=== PATIENT | female | born 1960 | race Caucasian/White ===

== ENCOUNTER → 2016-06-09 | Outpatient (CLI) | payer BC ==
--- NOTE | 2016-06-10 11:10 | MM ---
Reason for exam: screening (asymptomatic). Last mammogram was performed 7 months ago. History: Patient is postmenopausal and is nulliparous. Family history of breast cancer in maternal aunt and premenopausal breast cancer in maternal aunt at age 45. Benign excisional biopsy of the right breast, 1977. Physical Findings: A clinical breast exam by your physician is recommended on an annual basis and results should be correlated with mammographic findings. MG Screening Mammo w CAD Bilateral CC and MLO view(s) were taken. Prior study comparison: November 12, 2015, left breast MG diagnostic mammo LT w CAD. April 03, 2015, bilateral MG 3d diag mammo w/cad JENNIFER. April 03, 2015, left breast US breast limited LT. March 10, 2014, bilateral MG screening mammo w CAD. February 14, 2013, bilateral digital screening mammo w/CAD. There are scattered fibroglandular densities. There is chronic nodularity bilaterally. Scattered round and punctate calcifications are unchanged. No significant changes when compared with prior studies. ASSESSMENT: Negative, BI-RAD 1 RECOMMENDATION: Routine screening mammogram of both breasts in 1 year.
== END | disposition home or self-care (01) ==
LOC: RADMAMWWP 16:17
PROVIDERS: ATTEND Internal Medicine
DX: Z12.31 Encounter for screening mammogram for malignant neoplasm of breast (principal)

== ENCOUNTER → 2017-07-17 | Outpatient (CLI) | payer BC ==
--- NOTE | 2017-07-18 10:43 | MM ---
Reason for exam: screening (asymptomatic). Last mammogram was performed 1 year and 1 month ago. History: Patient is postmenopausal and is nulliparous. Family history of breast cancer in maternal aunt and premenopausal breast cancer in maternal aunt at age 45. Benign excisional biopsy of the right breast, 1977. Physical Findings: A clinical breast exam by your physician is recommended on an annual basis and results should be correlated with mammographic findings. MG Screening Mammo w CAD Bilateral CC and MLO view(s) were taken. Prior study comparison: June 09, 2016, bilateral MG screening mammo w CAD. November 12, 2015, left breast MG diagnostic mammo LT w CAD. There are scattered fibroglandular densities. There is chronic nodularity bilaterally with multiple circumscribed masses in a benign pattern. No significant changes when compared with prior studies. ASSESSMENT: Benign, BI-RAD 2 RECOMMENDATION: Routine screening mammogram of both breasts in 1 year.
== END | disposition home or self-care (01) ==
LOC: RADMAMWWP 16:00
PROVIDERS: ATTEND Internal Medicine
DX: Z12.31 Encounter for screening mammogram for malignant neoplasm of breast (principal)
CPT/HCPCS: 77067

== ENCOUNTER → 2017-09-09 | Outpatient (CLI) | payer BC ==
[2017-09-09 10:54] LABS: ALT 31 U/L (9-52); AST 19 U/L (14-36); Cholesterol 195 mg/dL (<200); HDL Cholesterol 46 mg/dL (40-60); LDL Cholesterol,Calculated 132 mg/dL (0-99); Triglycerides 84 mg/dL (<150)
== END | disposition home or self-care (01) ==
LOC: LABWHC1 09:33
PROVIDERS: ATTEND Nurse Practitioner Adult Health
DX: E78.5 Hyperlipidemia, unspecified (principal)
CPT/HCPCS: 36415; 80061; 84450; 84460

== ENCOUNTER → 2018-03-10 | Outpatient (CLI) | payer BC | LOC: LABWHC1 09:10 | PROVIDERS: ATTEND Nurse Practitioner Adult Health | DX: E78.5 Hyperlipidemia, unspecified (principal) | CPT/HCPCS: 36415; 80061; 84450; 84460 ==

== ENCOUNTER → 2018-08-30 | Outpatient (CLI) | payer BC ==
--- NOTE | 2018-08-31 13:40 | MM ---
Reason for exam: screening (asymptomatic). Last mammogram was performed 1 year and 1 month ago. History: Patient is postmenopausal and is nulliparous. Family history of breast cancer in maternal aunt and premenopausal breast cancer in maternal aunt at age 45. Benign excisional biopsy of the right breast, 1977. Physical Findings: A clinical breast exam by your physician is recommended on an annual basis and results should be correlated with mammographic findings. MG Screening Mammo w CAD Bilateral CC and MLO view(s) were taken. Prior study comparison: July 17, 2017, bilateral MG screening mammo w CAD. June 09, 2016, bilateral MG screening mammo w CAD. The breast tissue is heterogeneously dense. This may lower the sensitivity of mammography. There is a left lower inner quadrant mass 8.5cm from nipple. Benign appearing bilateral calcifications. No suspicious abnormality on the right. Stable right masses. ASSESSMENT: Incomplete: need additional imaging evaluation, BI-RAD 0 RECOMMENDATION: Special view mammogram of the left breast. If lesion persists on supplemental views, image directed ultrasound is recommended. [facility] will attempt to contact patient to return for supplemental views and ultrasound if indicated.
== END | disposition home or self-care (01) ==
LOC: RADMAMWWP 12:38
PROVIDERS: ATTEND Internal Medicine
DX: Z12.31 Encounter for screening mammogram for malignant neoplasm of breast (principal)
CPT/HCPCS: 77067

== ENCOUNTER → 2018-09-05 | Outpatient (CLI) | payer BC ==
--- NOTE | 2018-09-05 12:20 | MM ---
Reason for exam: additional evaluation requested from abnormal screening. Last mammogram was performed less than 1 month ago. History: Patient is postmenopausal and is nulliparous. Family history of breast cancer in maternal aunt and premenopausal breast cancer in maternal aunt at age 45. Benign excisional biopsy of the right breast, 1977. Physical Findings: Nurse did not find any significant physical abnormalities on exam. MG Work Up Mamm w CAD LT CC and MLO view(s) were taken of the left breast. Prior study comparison: August 30, 2018, bilateral MG screening mammo w CAD. July 17, 2017, bilateral MG screening mammo w CAD. The breast tissue is heterogeneously dense. This may lower the sensitivity of mammography. There is a persistent left mass measuring 5mm 9cm from nipple at 6 o'clock. These results were verbally communicated with the patient and result sheet given to the patient on 09/05/18. ASSESSMENT: Incomplete: need additional imaging evaluation, BI-RAD 0 RECOMMENDATION: Ultrasound of the left breast. (lower outer quadrant)
--- NOTE | 2018-09-05 12:24 | USB ---
Reason for exam: additional evaluation requested from abnormal screening. History: Patient is postmenopausal and is nulliparous. Family history of breast cancer in maternal aunt and premenopausal breast cancer in maternal aunt at age 45. Benign excisional biopsy of the right breast, 1977. US Breast Workup Limited LT Left limited breast ultrasound including focal area of concern, retroareolar and axilla demonstrates a 0.4 x 0.2 x 0.3cm lesion too small to characterize at 9 o'clock, a 0.3 x 0.2 x 0.3cm lesion too small to characterize at 12 o'clock, a 0.4 x 0.3 x 0.4cm mixed lesion at 12 o'clock 7cm from nipple, biopsy ensure correlation with mammogram on post biopsy imaging, a 0.5 x 0.6 x 0.5cm mixed lesion at 12 o'clock recommendation based on above biopsy results and a 0.6 x 0.3 x 0.5cm mixed lesion at 2 o'clock recommendation based on above biopsy results. These results were verbally communicated with the patient and result sheet given to the patient on 09/05/18. ASSESSMENT: Suspicious, BI-RAD 4 RECOMMENDATION: Ultrasound core biopsy of the left breast. Called Dr. Camara with mammographic findings and has scheduled an appointment for the patient for 09/20/18 at 8:[address] Rainey. Biopsy scheduled for 09/20/18 at 12:20. PRELIMINARY REPORT CALLED AND FAXED TO DR. RAINEY ON 09/05/18.
== END | disposition home or self-care (01) ==
LOC: RADMAMWWP 09:02
PROVIDERS: ATTEND Internal Medicine
DX: R92.8 Other abnormal and inconclusive findings on diagnostic imaging of breast (principal)
CPT/HCPCS: 77065

== ENCOUNTER → 2018-09-20 | Day surgery (SDC) | payer BC ==
[2018-09-20 10:16] VITALS: PULSE 77; RESP 12
[2018-09-20 12:17] VITALS: BP 137/94; TEMP 98.3
--- NOTE | 2018-09-20 13:12 | MM ---
EXAMINATION TYPE: MG diagnostic mammo LT wo CAD, US biopsy breast VAD LT DATE OF EXAM: 09/20/2018 CLINICAL HISTORY: R92.8 ABNORMAL MAMMOGRAM. Abnormal ultrasound. TECHNIQUE: Ultrasound guided core biopsy of left breast. COMPARISON: Prior mammogram and ultrasound September 05, 2018 and older studies. FINDINGS: The procedure of ultrasound guided core biopsy was explained to the patient. Benefits, alternatives, and risks were discussed. An informed consent was then obtained. The patient was placed in supine positioning for imaging and for the procedure. Preprocedure ultrasound redemonstrated few scattered small hypoechoic lesions including 12:00 lesion identified as suspicious on prior ultrasound. Because of new mammogram abnormality 6:00 position targeted ultrasound here revealed 5 x 3 mm small hypoechoic lesion. This is chosen for sampling due to new mammogram abnormality. The overlying skin was prepped and draped in usual sterile fashion. Lidocaine buffered with bicarbonate was used as anesthetic into the skin period lidocaine with epinephrine is used as anesthetic to the deeper tissue up to area of concern in the left breast. Under ultrasound guidance, a 12-gauge vacuum assisted biopsy gun device was used to obtain 4a core samples. Following this, a biopsy clip was left in lesion. Postprocedure mammogram shows the area in close proximity to the original area of concern on mammogram which is not clearly identified after sampling. The patient tolerated the procedure well without any immediate complication. The patient was kept in the radiology department for short stay after the procedure and then discharged home in stable condition. IMPRESSION: Successful, uncomplicated ultrasound guided core biopsy of area of concern in the left breast, full pathology results to follow. Low index of suspicion noted at time of procedure. Pathology Results: Benign LEFT BREAST, SIX O'CLOCK, ULTRASOUND GUIDED CORE BIOPSY: Fibrocystic changes including cysts, fibrosis and columnar cell change. Recommendation Follow up mammogram of the left breast in 6 months. ARID
== END ==
LOC: RADUSWWP 09:57
PROVIDERS: ATTEND Surgery
DX: N60.32 Fibrosclerosis of left breast (principal); R92.8 Other abnormal and inconclusive findings on diagnostic imaging of breast; Z88.6 Allergy status to analgesic agent
CPT/HCPCS: 88305; 77065; 19083; A4648; J2001

== ENCOUNTER → 2018-09-20 | Outpatient (CLI) | payer BC ==
[2018-09-20 08:32] VITALS: BP 128/83; PULSE 80; RESP 18; TEMP 98.5; BMI 45.4
--- NOTE | 2018-09-20 09:25 | P.GSHP ---
History of Present Illness H&P Date: 09/20/18 Chief Complaint: Abnormal left breast mammogram and ultrasound Amy is a 57[place]year[place] [id number] underwent a bilateral screening mammogram. The patient was noted to have a left lower inner quadrant mass 8.5 cm from the nipple. She had benign-appearing bilateral calcifications. Additional imaging was requested. On [id number] she underwent a left breast specimen mammogram which revealed a persistent mass in the left breast measuring 5 mm 9 cm from the nipple at the 6 o'clock position. She also underwent a left breast limited ultrasound. On the ultrasound she was noted to have a 2.4 x 0.3 x 0.4 cm lesion at 12:00 7 cm from the nipple for which a biopsy was recommended. The post biopsy image was then recommended to assure that this was the area of concern seen on the mammogram. 2 additional small lesions were identified in 0.5 x 0.6 cm mixed lesion at 12:00 and 8.6 x 0.3 cm lesion at 2:00 and further recommendation for biopsy of these was based on the results of the first biopsy. The patient does not feel anything in her breast. No nipple discharge. No pain in her breast. The patient gets mammograms on a regular basis, her past mammogram prior to this was a year ago. Family History: maternal aunt: bilateral mastectomy maternal aunt: bilateral mastectomy maternal aunt: one mastectomy (3 maternal aunts with breast cancer) mother: from a MVA at 53, had multiple needle aspirations of her breast paternal grandfather; stomach cancer Hormonal history: Menarche: 11 Pregnancies: none, had irregular periods and never menopause: 48, ablation done at 48 BCP: to regulate period to try to get , less than one year hormones: to try to get 1 year Past surgical history: 1. Right breast biopsy at 17 or 18 years of age 2. D&C 3. Cardiac cath 4. right knee surgery Past Medical History: 1. Coronary artery spasm 2. Asthma 3. HTN 4.borderline high cholesterol Social History: smoke: none alcohol: occasional drugs: none - Constitutional Constitutional: Denies chills, Denies fever - EENT Comment: pain in her right medial periorbital area follows with ophthalmology, wears glasses Eyes: right pain, denies blurred vision Ears: bilateral: decreased hearing (low sounds difficult to hear), deny: tinnitus Ears, nose, mouth and throat: Denies headache, Denies sore throat - Breasts Breasts: bilateral: as per HPI - Cardiovascular Comment: coronary artery spasm, on metoprolal, brought on by stress, smoke, cold - Respiratory Comment: asthma - Gastrointestinal Gastrointestinal: Denies abdominal pain, Denies diarrhea, Denies nausea, Denies vomiting - Genitourinary (Female) Genitourinary: Denies dysuria, Denies hematuria - Menstruation Menstruation: Reports postmenopausal - Musculoskeletal Comment: arthritis - Integumentary Integumentary: Denies pruritus, Denies rash - Neurological Neurological: Reports numbness, Denies weakness - Psychiatric Psychiatric: Denies anxiety, Denies depression - Endocrine Endocrine: Denies fatigue, Denies weight change - Hematologic/Lymphatic Comment: celebrix off now for biopsy - Allergic/Immunologic Allergic/Immunologic: Reports seasonal allergies Past Medical History Past Medical History: Asthma, Hyperlipidemia, Hypertension, Osteoarthritis (OA) Additional Past Medical History / Comment(s): osteoarthritis bilateral knees and hands. History of Any Multi-Drug Resistant Organisms: None Reported Past Surgical History: Orthopedic Surgery, Uterine Ablation Additional Past Surgical History / Comment(s): Right breast cysts/tumors removed at age 17, Multiple D&C's, cardiac ablation in [address] Rowan, Right knee arthroscopy/meniscus repair (Dr. Kevin Vaca) Past Anesthesia/Blood Transfusion Reactions: No Reported Reaction Additional Past Anesthesia/Blood Transfusion Reaction / Comment(s): Patient states her father had difficulty coming out of anesthesia when he was in his age 60-70 but she has never had any issues personally Smoking Status: Never smoker Past Alcohol Use History: Rare Past Drug Use History: None Reported - Past Family History Mother Family Medical History: Cancer Additional Family Medical History / Comment(s): Patient states that 2 of her mother's sisters had double mastectomies, the 3rd aunt had a unilateral mas tectomy Medications and Allergies Home Medications Medication Instructions Recorded Confirmed Type Albuterol Inhaler [Ventolin Hfa 1 - 2 puff INHALATION Q2-3H PRN 07/23/14 09/20/18 History Inhaler] Aspirin 81 mg PO DAILY 07/23/14 09/20/18 History Lisinopril-Hctz 10-12.5 mg 10 mg PO QAM 07/23/14 09/20/18 History [Zestoretic 10-12.5] Metoprolol Tartrate [Lopressor] 12.5 mg PO BID 07/23/14 09/20/18 History Montelukast [Singulair] 10 mg PO HS 07/23/14 09/20/18 History Ascorbic Acid [Vitamin C] 500 mg PO DAILY 09/11/18 09/20/18 History Celecoxib [CeleBREX] 200 mg PO BID 09/11/18 09/20/18 History Allergies Allergy/AdvReac Type Severity Reaction Status Date / Time ibuprofen AdvReac Anaphylaxis Verified 09/20/18 08:34 naproxen [From Naprosyn] AdvReac Anaphylaxis Verified 09/20/18 08:34 Surgical - Exam Vital Signs Temp Pulse Resp BP Pulse Ox 98.5 F 80 18 128/83 95 09/20/18 08:26 09/20/18 08:26 09/20/18 08:26 09/20/18 08:26 09/20/18 08:26 BMI 45.4 - General obese - Eyes normal ocular movement - ENT no hearing loss, no congestion - Neck no masses, trachea midline - Respiratory normal expansion, normal respiratory effort, clear to auscultation - Cardiovascular Rhythm: regular Heart Sounds: normal: S1, S2 - Abdomen Abdomen: soft, non tender, no guarding, no rigid, no rebound - Integumentary normal turgor - Neurologic no disoriented, no combative - Musculoskeletal right knee difficulty with getting on exam table - Psychiatric oriented to time, oriented to person, oriented to place, speech is normal, memory intact Breast examination: With this: Multi-positional exam no dominant masses or nodules of concern fibrocystic changes Right axilla: No adenopathy of concern Left breast: Multiple positional exam no dominant masses or nodules of concern, fibrocystic changes this on the lateral aspect of the left breast which is somewhat irregular with 2 punctate areas of increased pigmentation within it Left axilla: No adenopathy of concern On back at bra line There is a nevus with a dark center Results Mammogram and ultrasound results reviewed Assessment and Plan Assessment: Impression: 1. Abnormal mammogram left breast 2. Abnormal ultrasound left breast 3. Family history of breast cancer 4. Fibrocystic breast changes 5. Coronary artery spasm 6. Hypertension 7. Borderline high cholesterol 8. Asthma The mammogram and ultrasound reports of been reviewed. One lesion on ultrasound is felt to correspond to the lesion seen on mammogram and it is recommended that a core biopsy of this area be performed. Following the core biopsy radiograph will be performed to assure that the area of concern was actually biopsied. If the area has not been adequately sampled by ultrasound core biopsy would recommend stereotactic core biopsy of this area. If this area has been adequately sampled and is in any way suspicious for atypical and several other cystic areas in the breast would be targeted for ultrasound core biopsy. If this is benign we will most likely follow the other areas conservatively. Plan: 1. Ultrasound core biopsy left breast 2. Medical management of medical conditions 3. Follow-up in 1 week for pathology results of ultrasound core biopsy 4. Mammogram immediately after ultrasound core biopsy to confirm that the area of concern has been adequately sampled CC:DR. Camara
== END ==
LOC: WWCWWP 08:18
PROVIDERS: ATTEND Surgery
DX: Z53.9 Procedure and treatment not carried out, unspecified reason (principal)

== ENCOUNTER → 2018-09-27 | Outpatient (CLI) | payer BC ==
[2018-09-27 16:27] VITALS: BP 138/82; PULSE 90; RESP 20; TEMP 98.5; BMI 47.0
--- NOTE | 2018-09-27 16:38 | P.PN ---
Subjective Progress Note Date: 09/27/18 Principal diagnosis: Fibrocystic breast changes Amy is a 57-year-old white female status post left breast ultrasound-guided core biopsy on . Pathology revealed benign fibrocystic changes including cysts, fibrosis and columnar cell change. Mammogram following the procedure revealed that the area biopsied and ultrasound was consistent with an area seen on mammography. The patient has no complaints following the procedure. Objective - Vital Signs Vital signs: Vital Signs Temp 98.5 F 09/27/18 16:24 Pulse 90 09/27/18 16:24 Resp 20 09/27/18 16:24 BP 138/82 09/27/18 16:24 Pulse Ox 97 09/27/18 16:24 Intake & Output 09/26/18 09/27/18 09/27/18 18:59 06:59 18:59 Weight 136.078 kg - Constitutional General appearance: Present: obese - EENT Eyes: Present: EOMI ENT: Present: hearing grossly normal - Neck Neck: Present: normal ROM - Respiratory Respiratory: bilateral: CTA - Cardiovascular Rhythm: regular Heart sounds: normal: S1, S2 - Gastrointestinal General gastrointestinal: Present: soft - Musculoskeletal Musculoskeletal: Present: gait normal - Psychiatric Psychiatric: Present: A&O x's 3, appropriate affect, intact judgment & insight - Additional findings Additional findings: Left breast biopsy; clean and dry No evidence of infection Assessment and Plan Assessment: Impression: 1. Left breast ultrasound core biopsy benign 2. Ultrasound core biopsy site appears to correspond a mammographic site of concern Plan: 1. Review pathology with radiology if they concur that this is the correct area repeat left breast mammogram and exam in 6 months time CC: Dr. Camara
== END | disposition home or self-care (01) ==
LOC: WWCWWP 16:12
PROVIDERS: ATTEND Surgery
DX: Z53.9 Procedure and treatment not carried out, unspecified reason (principal)

== ENCOUNTER → 2019-03-25 | Outpatient (CLI) | payer BC ==
--- NOTE | 2019-03-25 08:34 | MM ---
Reason for exam: follow-up at short interval from prior study. Last mammogram was performed 6 months ago. History: Patient is postmenopausal and is nulliparous. Family history of breast cancer in maternal aunt and premenopausal breast cancer in maternal aunt at age 45. Benign US biopsy breast VAD LT of the left breast, September 20, 2018. Benign excisional biopsy of the right breast, 1977. Physical Findings: Nurse did not find any significant physical abnormalities on exam. MG Diagnostic Mammo LT w CAD CC, MLO, and XCCL view(s) were taken of the left breast. Prior study comparison: September 20, 2018, left breast MG diagnostic mammo LT wo CAD. September 05, 2018, left breast MG work up mamm w CAD LT. August 30, 2018, bilateral MG screening mammo w CAD. July 17, 2017, bilateral MG screening mammo w CAD. June 09, 2016, bilateral MG screening mammo w CAD. The breast tissue is heterogeneously dense. This may lower the sensitivity of mammography. Benign appearing calcifications in the left breast. No suspicious abnormality. Left lower inner quadrant middle depth biopsy marker noted. These results were verbally communicated with the patient and result sheet given to the patient on 03/25/19. ASSESSMENT: Benign, BI-RAD 2 RECOMMENDATION: Return to routine screening mammogram schedule for both breasts. Back on schedule for August 2019.
== END | disposition home or self-care (01) ==
LOC: RADMAMWWP 07:01
PROVIDERS: ATTEND Surgery
DX: R92.8 Other abnormal and inconclusive findings on diagnostic imaging of breast (principal)
CPT/HCPCS: 77065

== ENCOUNTER → 2019-03-28 | Outpatient (CLI) | payer BC ==
[2019-03-28 16:37] VITALS: BP 136/84; PULSE 72; RESP 18; TEMP 97.9; BMI 45.4
--- NOTE | 2019-03-28 17:06 | P.PN ---
Subjective Progress Note Date: 03/28/19 Amy is a 57[place] [id number] [place] a bilateral screening mammogram. The patient was noted to have a left lower inner quadrant mass 8.5 cm from the nipple. She had benign-appearing bilateral calcifications. Additional imaging was requested. On she underwent a left breast mammogram which revealed a persistent mass in the left breast measuring 5 mm 9 cm from the nipple at the 6 o'clock position. She also underwent a left breast limited ultrasound. On the ultrasound she was noted to have a 2.4 x 0.3 x 0.4 cm lesion at 12:00 7 cm from the nipple for which a biopsy was recommended. The post biopsy image was then recommended to assure that this was the area of con cern seen on the mammogram. 2 additional small lesions were identified in 0.5 x 0.6 cm mixed lesion at 12:00 and 8.6 x 0.3 cm lesion at 2:00 and further recommendation for biopsy of these was based on the results of the first biopsy. The patient does not feel anything in her breast. No nipple discharge. No pain in her breast. The patient gets mammograms on a regular basis. Underwent an ultrasound-guided core biopsy of the left breast and [id number]. This revealed fibrocystic changes. She subsequently had a repeat mammogram of the left side on . This was felt to be benign BIRADS 2 and routine screening of both breasts in August 2019 is recommended. She is not having any complaints of any lumps masses or nodules in her breast. Family History: maternal aunt: bilateral mastectomy maternal aunt: bilateral mastectomy maternal aunt: one mastectomy (3 maternal aunts with breast cancer) mother: from a MVA at 53, had multiple needle aspirations of her breast paternal grandfather; stomach cancer Hormonal history: Menarche: 11 Pregnancies: none, had irregular periods and never menopause: 48, ablation done at 48 BCP: to regulate period to try to get , less than one year hormones: to try to get 1 year Past surgical history: 1. Right breast biopsy at 17 or 18 years of age 2. D&C 3. Cardiac cath 4. right knee surgery Past Medical History: 1. Coronary artery spasm 2. Asthma 3. HTN 4.borderline high cholesterol Social History: smoke: none alcohol: occasional drugs: none - Constitutional Constitutional: Denies chills, Denies fever - EENT Comment: resolved pain in her right medial periorbital area follows with ophthalmology, wears glasses Eyes: right pain, denies blurred vision Ears: bilateral: decreased hearing (low sounds difficult to hear), deny: tinnitus Ears, nose, mouth and throat: Denies headache, Denies sore throat - Breasts Breasts: bilateral: as per HPI - Cardiovascular Comment: coronary artery spasm, on metoprolal, brought on by stress, smoke, cold - Respiratory Comment: asthma - Gastrointestinal Gastrointestinal: Denies abdominal pain, Denies diarrhea, Denies nausea, Denies vomiting - Genitourinary (Female) Genitourinary: Denies dysuria, Denies hematuria - Menstruation Menstruation: Reports postmenopausal - Musculoskeletal Comment: arthritis - Integumentary Integumentary: Denies pruritus, Denies rash - Neurological Neurological: Reports numbness, Denies weakness - Psychiatric Psychiatric: Denies anxiety, Denies depression - Endocrine Endocrine: Denies fatigue, Denies weight change - Hematologic/Lymphatic Comment: celebrix off now for biopsy - Allergic/Immunologic Allergic/Immunologic: Reports seasonal allergies Past Medical History Past Medical History: Asthma, Hyperlipidemia, Hypertension, Osteoarthritis (OA) Additional Past Medical History / Comment(s): osteoarthritis bilateral knees and hands. History of Any Multi-Drug Resistant Organisms: None Reported Past Surgical History: Orthopedic Surgery, Uterine Ablation Additional Past Surgical History / Comment(s): Right breast cysts/tumors removed at age 17, Multiple D&C's, cardiac ablation in [address] Rowan, Right knee arthroscopy/meniscus repair (Dr. Kevin Vaca) Past Anesthesia/Blood Transfusion Reactions: No Reported Reaction Additional Past Anesthesia/Blood Transfusion Reaction / Comment(s): Patient states her father had difficulty coming out of anesthesia when he was in his age 60-70 but she has never had any issues personally Smoking Status: Never smoker Past Alcohol Use History: Rare Past Drug Use History: None Reported - Past Family History Mother Family Medical History: Cancer Additional Family Medical History / Comment(s): Patient states that 2 of her mother's sisters had double mastectomies, the 3rd aunt had a unilateral mastectomy Objective - Vital Signs Vital signs: Vital Signs Temp 97.9 F 03/28/19 16:35 Pulse 72 03/28/19 16:35 Resp 18 03/28/19 16:35 BP 136/84 03/28/19 16:35 Pulse Ox 97 03/28/19 16:35 Intake & Output 03/27/19 03/28/19 03/28/19 18:59 06:59 18:59 Weight 131.542 kg - Exam BMI 45.4 - Constitutional General appearance: Present: obese - EENT Eyes: Present: EOMI ENT: Present: hard of hearing - Neck Neck: Present: normal ROM - Respiratory Respiratory: bilateral: CTA - Cardiovascular Rhythm: regular Heart sounds: normal: S1, S2 - Gastrointestinal Gastrointestinal Comment(s): no guarding or rebound normal bowel sounds General gastrointestinal: Present: soft - Integumentary Integumentary: Present: normal turgor - Musculoskeletal Musculoskeletal: Present: gait normal - Psychiatric Psychiatric: Present: A&O x's 3, appropriate affect, intact judgment & insight - Additional findings Additional findings: breast exam: BRA 42D Breasts: Multiple positional exam no dominant masses or nodules of concern Right axilla: No adenopathy of concern Left breast: Multi-positional exam no dominant masses or nodules of concern Left axilla: No adenopathy of concern Assessment and Plan Assessment: Impression: 1. Status post ultrasound-guided core biopsy of the left breast which was benign 2. Recent mammogram of the left breast benign 3. Family history of breast cancer 4. Fibrocystic breast changes 5. Coronary artery spasm 6. Hypertension 7. Borderline high cholesterol 8. Asthma 9. obesity making exam more difficult Plan: 1. Repeat left breast mammogram and ultrasound in 6 months with physician exam at that time, repeat right breast mammogram and schedule 2. Medical management of medical conditions 3. Consider genetic counseling secondary to strong family history of breast cancer We have discussed the pathology results. We have discussed the findings on the mammogram. We discussed the option of genetic counseling however the patient at this time is not interested. We will continue to follow the patient closely secondary to her strong family history of breast cancer and changes which had been noted radiographically. Cc:Dr. Camara
== END | disposition home or self-care (01) ==
LOC: WWCWWP 15:38
PROVIDERS: ATTEND Surgery
DX: Z53.9 Procedure and treatment not carried out, unspecified reason (principal)

== ENCOUNTER → 2020-11-09 | Outpatient (CLI) | payer BC ==
[2020-11-09 15:20] LABS: Chol/HDL Ratio 3.44; LDL Cholesterol,Calculated 68.2 mg/dL (0.0-131.0); VLDL Calculation 36.8 mg/dL (5.00-40.00)
== END | disposition home or self-care (01) ==
LOC: LABWHC1 09:15
PROVIDERS: ATTEND Internal Medicine Interventional Cardiology
DX: E78.2 Mixed hyperlipidemia (principal)
CPT/HCPCS: 36415; 80061; 84450; 84460

== ENCOUNTER → 2021-09-27 | Outpatient (CLI) | payer BC ==
--- NOTE | 2021-09-28 10:44 | CT ---
EXAMINATION TYPE: US abdomen limited DATE OF EXAM: 09/28/2021 COMPARISON: None HISTORY: Primary osteoarthritis left shoulder CT DLP: 673.3 mGycm Automated exposure control for dose reduction was used. Contrast: None Technique: Axial images 2 mm thick sections. Reconstructed images in the coronal and sagittal plane. Three-D reconstructed images performed by the technologist on a separate computer are reviewed. FINDINGS: No acute fractures are evident. There is mild hypertrophy of the acromioclavicular junction. Inferior spurring is not identified. There is complete loss of the glenohumeral junction. Vacuum joint space is present. There is advanced degenerative change and remodeling of the humeral head and glenoid. Osseous spurring is present. No free fragments are identified. Three-D reconstructed images demonstrate advanced degenerative change. Acromiohumeral space appears p reserved. Soft tissues are normal. Small portion of the lung field within the field of view appears unremarkabl e. IMPRESSION: 1. ADVANCED DEGENERATIVE JOINT CHANGES LEFT GLENOHUMERAL JUNCTION.
== END | disposition home or self-care (01) ==
LOC: RADCTMAIN 18:27
PROVIDERS: ATTEND Orthopaedic Surgery Sports Medicine
DX: M19.012 Primary osteoarthritis, left shoulder (principal)

== ENCOUNTER → 2021-10-02 | Outpatient (CLI) | payer BC ==
--- NOTE | 2021-10-02 14:11 | XR ---
EXAMINATION TYPE: XR chest 2V DATE OF EXAM: 10/02/2021 COMPARISON: Chest x-ray July 12, 2014. HISTORY: Cough. TECHNIQUE: Frontal and lateral views of the chest are obtained. FINDINGS: There is no suspicious new focal air space opacity, pleural effusion, or pneumothorax seen . The cardiac silhouette size remains within normal limits. The osseous structures are intact. IMPRESSION: No no suspicious acute pulmonary process.
== END | disposition home or self-care (01) ==
LOC: RADXRMAIN 11:49
PROVIDERS: ATTEND Internal Medicine
DX: R05.9 Cough, unspecified (principal)
CPT/HCPCS: 71046

== ENCOUNTER → 2021-10-14 | Outpatient (CLI) | payer BC ==
--- NOTE | 2021-10-14 07:43 | US ---
EXAMINATION TYPE: US venous doppler duplex LE LT DATE OF EXAM: 10/14/2021 7:24 AM COMPARISON: NONE CLINICAL HISTORY: M79.662 PAIN IN LEFT LOWER LEG. SIDE PERFORMED: TECHNIQUE: The lower extremity deep venous system is examined utilizing real time linear array sonog pearl with graded compression, doppler sonography and color-flow sonography. VESSELS IMAGED: Common Femoral Vein Deep Femoral Vein Greater Saphenous Vein * Femoral Vein Popliteal Vein Small Saphenous Vein * Proximal Calf Veins (* superficial vessels) Morbidly obese patient. Unable to see distal femoral vein for compression view. Left Leg: Negative for DVT Grayscale, color doppler, spectral doppler imaging performed of the deep veins of the left lower extr emity. IMPRESSION: Suboptimal study due to body habitus. No ultrasound evidence for acute DVT in the left l ower extremity.
== END | disposition home or self-care (01) ==
LOC: RADUSWWP 07:01
PROVIDERS: ATTEND Internal Medicine
DX: M79.662 Pain in left lower leg (principal)

== ENCOUNTER → 2021-10-15 | Outpatient (CLI) | payer BC ==
--- NOTE | 2021-10-15 14:41 | US ---
EXAMINATION TYPE: US kidneys/renal and bladder DATE OF EXAM: 10/15/2021 COMPARISON: NONE CLINICAL HISTORY: R31.9 HEMATURIA, UNSPECIFIED. Microscopic hematuria. No pain. EXAM MEASUREMENTS: Right Kidney: 9.9 x 5.7 x 6.3 cm Left Kidney: 9.3 x 4.6 x 5.2 cm Right Kidney: Cystic lesion upper medial = 1.7 x 1.5 x 1.3 cm Left Kidney: cystic lesion mid renal sinus = 1.0 x 1.0 cm. Echogenic focus, nonshadowing = 0.6 x 0.6 cm Bladder: mildly distended, anechoic, limited visualization Bilateral Jets not seen IMPRESSION: 1. Bilateral renal cysts. 2. Left renal stone. Some minimal prominence within the mid left kidney without overt hydronephrosis . Peripelvic cyst could be considered.
== END | disposition home or self-care (01) ==
LOC: RADUSWWP 07:02
PROVIDERS: ATTEND Internal Medicine
DX: N28.1 Cyst of kidney, acquired (principal); N20.0 Calculus of kidney
CPT/HCPCS: 76770

== ENCOUNTER 2021-10-28 05:34 | Day surgery (SDC) | payer BC ==
[2021-10-26 13:46] VITALS: BMI 46.2
[~2021-10-28 05:34] MED LIST: ACETAMINOPHEN TAB 500 MG TAB PO PRN; GABAPENTIN 300 MG CAP PO PRN; ONDANSETRON 4 MG/2 ML VIAL IVP PRN; TRANEXAMIC ACID IN NACL,ISO-OS 1,000 MG in SALINE 1 100ML.BAG IVPB PRN; ceFAZolin 3 GM in SODIUM CHLORIDE 0.9% 100 ML IVPB PRN
[2021-10-28] MEDS ORDERED: DEXAMETHASONE SOD PHOSPHATE 4 MG/ML 1 ML VIAL IV ONE (05:48)
[2021-10-28] MEDS ORDERED: ONDANSETRON 4 MG/2 ML VIAL IVP ONE (05:48)
[2021-10-28] MEDS ORDERED: LACTATED RINGERS 1,000 ML IV SCH (05:48)
[2021-10-28] MEDS ORDERED: HYDROmorphone 0.5 MG/0.5 ML SYRINGE IVP PRN ×3 (05:48→10:13)
[2021-10-28] MEDS ORDERED: MIDAZOLAM 2 MG/2 ML VIAL IV PRN (05:48)
[2021-10-28] MEDS ORDERED: LIDOCAINE 1% (10MG/ML) FOR IV START INTRADERMA ONE (06:25)
[2021-10-28] MEDS ORDERED: fentaNYL (PF) 50 MCG/ML 2 ML AMP IV ONE (06:48)
[2021-10-28] MEDS ORDERED: ROCURONIUM 10 MG/ML (5 ML VIAL) IV ONE (07:15)
[2021-10-28] MEDS ORDERED: SUCCINYLCHOLINE CHLORIDE VIAL 200 MG/10 ML VIAL IV ONE (07:15)
[2021-10-28] MEDS ORDERED: ROPIVACAINE 5 MG/ML 30 ML VIAL ONE (07:15)
[2021-10-28] MEDS ORDERED: GLYCOPYRROLATE 0.2 MG/ML 2 ML VIAL ONE (07:15)
[2021-10-28] MEDS ORDERED: TRANEXAMIC ACID IN NACL,ISO-OS 1,000 MG/100 ML BAG ONE (07:15)
[2021-10-28] MEDS ORDERED: PROPOFOL 10 MG/ML 20 ML VIAL IV ONE (07:15)
[2021-10-28] MEDS ORDERED: HYDROmorphone (PF) 1 MG/ML ONE (07:15)
[2021-10-28] MEDS ORDERED: LIDOCAINE 2% INJ 20 MG/ML (2 ML VIAL) ONE (07:15)
[2021-10-28] MEDS ORDERED: MIDAZOLAM 2 MG/2 ML VIAL ONE (07:15)
[2021-10-28] MEDS ORDERED: fentaNYL (PF) 50 MCG/ML 2 ML AMP ONE (07:15)
[2021-10-28] MEDS ORDERED: NEOSTIGMINE 1 MG/ML 10 ML VIAL ONE (07:15)
[2021-10-28] MEDS ORDERED: ceFAZolin 3,000 MG in SODIUM CHLORIDE 0.9% IRRIGATIO 3,000 ML IRRIGATION ONE (07:59)
[2021-10-28] MEDS ORDERED: VANCOMYCIN 1,000 MG VIAL MISCELLANE ONE (09:14)
--- NOTE | 2021-10-28 10:07 | P.ANPRN ---
Procedure Note - Anesthesia - Nerve Block Performed Left Interscalene Single Time Out Performed: Yes ([id number]) Date of Procedure: 10/28/21 Procedure Start Time: 06:49 Procedure Stop Time: 06:53 Location of Patient: PreOp Indication: Acute Post-Operative Pain, Requested by Surgeon Specifically requested for management of pain by DrTigist: Kevin Vaca Sedation Type: Sedate with meaningful contact maintained Preparation: Sterile Prep Position: Supine Catheter: None Needle Types: Pajunk Needle Gauge: 21 Ultrasound used to visualize needle placement: Yes Ultrasound used to observe medication spread: Yes Injectate: 0.5% Ropivacaine (see comment for volume) (30cc) Blood Aspirated: No Pain Paresthesia on Injection Noted: No Resistance on Injection: Normal Image Stored and Saved: Yes Events: Uneventful and Well Tolerated
[2021-10-28] MEDS ORDERED: hydrOXYzine pamoate 25 MG CAP PO PRN (10:13)
[2021-10-28] MEDS ORDERED: ONDANSETRON 4 MG/2 ML VIAL IVP PRN (10:13)
[2021-10-28] MEDS ORDERED: PROCHLORPERAZINE SUPPOSITORY 25 MG SUPP RECTAL PRN (10:13)
[2021-10-28] MEDS ORDERED: HYDROmorphone 1 MG/ML 1 ML SYRINGE IVP PRN (10:13)
[2021-10-28] MEDS ORDERED: METOCLOPRAMIDE 5 MG/ML 2 ML VIAL IVP PRN (10:13)
[2021-10-28] MEDS ORDERED: diphenhydrAMINE 25 MG CAP PO PRN (10:13)
[2021-10-28] MEDS ORDERED: SENNOSIDES-DOCUSATE SODIUM 1 EACH TAB PO PRN (10:13)
[2021-10-28] MEDS ORDERED: TEMAZEPAM 15 MG CAP PO PRN (10:13)
[2021-10-28] MEDS ORDERED: HYDROcodone/APAP 10-325MG 1 EACH TAB PO PRN (10:18)
--- NOTE | 2021-10-28 10:56 | XR ---
Limited left shoulder HISTORY: Postop Single frontal view of the left shoulder Patient is status post left shoulder arthroplasty. There is anatomic alignment in this single view. A cromioclavicular joint shows arthropathy. Suspect there is an indwelling drain. Lucency in the soft t issues is consistent with postop state. Atelectatic changes are present in the left lung as visualize d. IMPRESSION: Orthopedic follow-up as described.
--- NOTE | 2021-10-28 11:59 | OP ---
OPERATIVE REPORT DATE OF PROCEDURE: 10/28/2021. SURGEON: Kevin Vaca MD. TURNER MACHINE: Theron CONNOR. PREOPERATIVE DIAGNOSIS: Left shoulder osteoarthrosis. POSTOP DIAGNOSIS: Left shoulder osteoarthrosis. OPERATION: Left total shoulder arthroplasty. ANESTHESIA: General endotracheal. ESTIMATED BLOOD LOSS: Was 250 mL. DRAINS: One deep drain. COMPLICATIONS: None apparent. DISPOSITION: Postanesthesia care unit. INDICATIONS: Amy is a very pleasant 61-year-old female with longstanding left shoulder pain. Workup including x-rays, CT scan revealed advanced osteoarthrosis of the left shoulder. At this point, it is felt that she has failed conservative management and she would like to proceed with operative intervention. The risks of procedure were discussed with her in detail. These risks include, but are not limited to risk of infection, nerve damage, bleeding, pain, instability in the shoulder, loosening of the implants and deep infection. There is also risk of deep vein thrombosis which could lead to fatal pulmonary embolism. The patient understood the risks. All of her questions were answered to her satisfaction. Appropriate informed consent was obtained. DESCRIPTION OF THE PROCEDURE: The patient was identified in preoperative holding area. Surgical site was marked by both the patient and myself. She was given 2 grams of Ancef IV prophylactic purposes. She was then transferred to the operative suite where she was placed supine on the op on the operative table. General anesthetic was then administered and dosed per the anesthesia without apparent complication. Examination under anesthesia of the left shoulder was performed. She had elevation to 100 degrees. External rotation at the side was to 30 degrees. The patient was then placed into the beach chair position well-padded in preparation for surgery. Great care was taken to ensure the cervical spine was in neutral alignment well-padded and maintained that way to operative procedure. Great care was also taken to ensure that her legs were appropriately padded as well. The patient's left upper extremity was then prepped and draped in usual sterile fashion. Standard surgical pause undertaken to ensure that we are operating correct site and that appropriate preoperative antibiotics had been given. All staff in the room were in agreement and we proceeded. The acromion, AC joint, clavicle and coracoid were marked with a surgical pen. A planned incision centered at the level of the clavicle and extending distally over the deltopectoral interval approximately 1 cm lateral to the coracoid was marked with a surgical pen. The incision was then made with a 10 blade scalpel. Dissection was carried down sharply to the deltoid fascia. The deltopectoral interval was then identified at the level of the clavicle. A small band retractor was then placed onto the proximal deltoid. I then released the deltoid fascia on the lateral aspect of the cephalic vein. The vein was then was preserved and left in its bed medially. The cephalic vein was protected throughout the entire case. I then identified the clavipectoral fascia. This was incised proximally to the level of the coracoacromial ligament. The coracoacromial ligament was left intact. I then used my finger to spread the interval between the conjoined tendon and the subscapularis. I felt for the axillary nerve which was readily palpable. I then cleared the subacromial and subdeltoid spaces of bursal and scar tissue. I then utilized a brown retractor to hold the deltoid and expose the humeral head. I then proceeded to release the subscapularis in the anterior inferior shoulder capsule. The rotator cuff was inspected. It was found to be intact. The rotator interval was then identified. The course of the biceps tendon was also identified. I then released the rotator interval. This was released at the base of the coracoid and then out laterally. The subscapularis and the capsule were then released intratendinously. The subscapularis and capsule release extended distally in a lazy-S fashion approximately 1 cm medial to the biceps tendon. I then continued to release the capsule along the inferior neck in a vertical fashion to approximately the 6 o'clock position. Great care was taken to ensure that the capsule was always visualized as it was released as to avoid injuring the axillary nerve. I then brought a Mckeon marble installation helper with the arm externally rotated and abducted. I continued to release the capsule inferomedially to the 4 o'clock position. The inferior osteophytes were then removed as well. This was done with a rongeur. I then proceeded with preparation of the humerus. I removed most of the goat's hall osteophytes. I then removed the subchondral plate from the superior aspect of the humeral head utilizing a large rongeur. I then utilized a starting reamer to gain access to the humeral canal. This was 1 cm medial to the rotator cuff insertion and 1 cm posterior to the bicipital groove. I then prepared the humeral canal with hand reaming. I started with a 6 mm reamer, and incrementally increased until firm resistance was encountered at 10 mm. The reamer handle was then left in place. Then utilized a humeral resection guide. This was set at 30 degrees of retrotorsion. The cutting block was then set 1-2 mm above the insertion of the rotator cuff. I then proceeded to osteotomize the humeral head with an oscillating saw. I removed the resection guide and then completed the osteotomy. I then proceeded with trial stem placement. I incrementally broached the canal up to a 10 mm broach. The 10 mm trial stem was then left in place. I then proceeded with trial reduction. I started with a 38 x 19 x 39 head. This seemed to fit very nicely. The head fit os with the glenoid. The rotator cuff was not tented. The internal rotation was 90 degrees and elevation was 150 degrees. Translation was 1/2 of the head in neutral rotation and 1/4 of the head inferiorly in 15-20 degrees of abduction. I then removed the trial head. The stem was then left in place. I then proceeded with exposure of the glenoid. At this point, I did release the biceps tendon. This was tenotomized at the level of superior labrum. A bone hook was then used to pull the humerus out laterally. I then inspected the joint for any loose bodies. The condition of the rotator cuff was also inspected again. It was in excellent condition. Of note, she had a very large posterior glenoid osteophyte. The curved ostia at this point with the bone hook utilizing to pull the humerus out laterally. I was able to remove the large posterior glenoid osteophyte utilizing both a curved osteotome and hemostats. After it was removed, the Battman retractor was then placed on the posterior glenoid rim. The arm was then placed in approximately 80 degrees of abduction and in slight flexion on a Mckeon stand. I then continued to proceeded to remove the hypertrophic labrum to definitively identify the actual glenoid. I then selected the size of the glenoid. A size 3 glenoid seemed to fit very nicely. I then utilized a starting drill to make the centering hole. I then proceeded to ream the glenoid fossa. This was done with a size 3 reamer. Reaming was then taken down to paprika signs. A nice bleeding surface. as minimal Reaming as possible was done as to preserve as much subchondral bone as possible. I then proceeded to place the glenoid drill holes. Peripheral drill holes were then placed in a center hole was also drilled as well. I then placed a trial size 3 glenoid and fit very nicely on the glenoid. I then proceeded with cementing. I then [place] the wound and the bone. The drill holes were then packed with Ray-Tigre sponges. One pack of antibiotic bone cement was prepared on the back table by the surgical nurse. The peripheral drill holes were then packed with cement utilizing a 20 mL syringe. These holes were then packed very tightly. A small amount of cement was then placed on the posterior aspect of the real glenoid component. I then impacted the real glenoid component into place. It was a Biomet size 3 pegged glenoid component with a Regenerex central PEG. Excess cement was removed utilizing a Harman elevator. Pressure was then held onto the glenoid component until the cement had hardened. I then removed the Battman retractor. I then proceeded with the humeral component trial reduction with the real glenoid in place. A 38 x 19 x 39 head was then placed back onto the stem. Again was taken through trial reduction. The head set opposite the glenoid. The rotator cuff was not tented. Elevation was to 150 degrees. Internal rotation was to 90 degrees and translation was 1/2 of the head in neutral rotation and 1/4 of the head in 15-20 degrees of abduction. I then had the rental sales representative open size 38 x 19 x 39 real head and a size 10 Biomet mini stem. The stem was then impacted into the canal and 30 degrees of retrotorsion. The real head was then impacted on the dried Arias taper of the stem. The shoulder was then reduced. I then proceeded with closure. The wound was again thoroughly irrigated with sterile saline solution with antibiotic added. The rotator interval was closed tightly with 0 Vicryl interrupted suture. The subscapularis and the anterior inferior capsule were then repaired with #2 FiberWire interrupted suture. I then felt for the axillary nerve which was readily palpable and uninjured throughout the case. Again the wound was thoroughly irrigated. deep drain was then placed and brought out superiorly away from the incision. Approximately 500 mg of vancomycin powder was then placed deep. The deltopectoral interval was then closed with 0 Vicryl interrupted suture. Again the subcutaneous tissue was then thoroughly irrigated. The remaining 500 mg of vancomycin powder was then placed subcutaneously. The subcutaneous tissue was closed with 2-0 Vicryl interrupted suture and the skin was closed with a running 3- 0 Quill suture. Dermabond was applied to the incision. Sterile dressing was applied. The patient's left upper extremity was placed into a shoulder immobilizer. All sponge and needle counts were deemed correct prior to closure. The patient tolerated the procedure without apparent complication. She was transferred to recovery room in stable condition. MMODL / IJN: [id number] /
[2021-10-28] MEDS: LACTATED RINGERS 1,000 ML IV SCH (14:52)
[2021-10-28] MEDS ORDERED: ALBUTEROL NEBULIZED 2.5 MG/3 ML INHALATION PRN (15:13)
[2021-10-28] MEDS ORDERED: SYMBICORT 80-4.5 MCG INHALER INHALATION PRN (15:13)
[2021-10-28] MEDS: ceFAZolin 3 GM in SODIUM CHLORIDE 0.9% 100 ML IVPB SCH ×2 (15:46→22:59)
[2021-10-28] MEDS: HYDROcodone/APAP 10-325MG 1 EACH TAB PO PRN ×2 (15:53→21:41)
--- NOTE | 2021-10-28 18:20 | P.CONS ---
History of Present Illness - Reason for Consult Consult date: 10/28/21 medical management - Chief Complaint status post left shoulder arthroplasty - History of Present Illness patient is a 61-year-old female with a known history of asthma, hypertension, hyperlipidemia, osteoarthritis, history ofcardiac ablation in 2016 was admitted to the hospital for elective left shoulder arthroplasty.patient tolerated the procedure very well. Currently patient is on left shoulder sling. Denies any complaints of chest pain or shortness of breath. No nausea vomiting abdominal pain or diarrhea. Denies any dysuria or hematuria. No leg swelling. Blood pressure is controlled. Review of Systems Constitutional: Patient denies any fever or chills . No generalized weakness or weight loss. Abdomen: Patient denied nausea vomiting and diarrhea and abdominal pain. Cardiovascular: Patient denies any chest pain or short of breath no palpitations. Respiratory: patient denied any cough is from production. No shortness of breath Neurologic: Patient denied any numbness or tingling headache. Musculoskeletal: Patient denies any complaints of joint swelling or deformity. Skin: Negative Psychiatric: Negative Endocrine: No heat or cold intolerance. No recent weight gain. Genitourinary: No dysuria or hematuria. All other 14 point ROS negative except the above Past Medical History Past Medical History: Asthma, Hyperlipidemia, Hypertension, Osteoarthritis (OA) Additional Past Medical History / Comment(s): osteoarthritis bilateral knees and hands. KIDNEY STONE, MACULAR DEGENERATION , History of Any Multi-Drug Resistant Organisms: None Reported Past Surgical History: Orthopedic Surgery, Uterine Ablation Additional Past Surgical History / Comment(s): Right breast surgery cysts/tumors remove, Multiple D&C's, cardiac ablation in [address] Rowan, Right knee arthroscopy/meniscus repair (Dr. Kevin Vaca) Past Anesthesia/Blood Transfusion Reactions: Family History of Problems w/ Anesthesia Additional Past Anesthesia/Blood Transfusion Reaction / Comm: Patient states her father had difficulty coming out of anesthesia when he was in his age 60-70 but she has never had any issues personally - took longer for him to wake up Smoking Status: Never smoker - Past Family History Mother Family Medical History: Cancer Additional Family Medical History / Comment(s): Patient states that 2 of her mother's sisters had double mastectomies, the 3rd aunt had a unilateral mastectomy Medications and Allergies Home Medications Medication Instructions Recorded Confirmed Type Albuterol Inhaler (Mhu) [Ventolin 1 - 2 puff INHALATION Q2-3H PRN 07/23/14 10/26/21 History Hfa Inhaler (Mhu)] Aspirin 81 mg PO QAM 07/23/14 10/26/21 History Lisinopril-Hctz 10-12.5 mg 10 mg PO QAM 07/23/14 10/26/21 History [Zestoretic 10-12.5] Metoprolol Tartrate [Lopressor] 12.5 mg PO BID 07/23/14 10/26/21 History Montelukast [Singulair] 10 mg PO HS 07/23/14 10/26/21 History Celecoxib [CeleBREX] 200 mg PO BID 09/11/18 10/26/21 History Fluticasone/Vilanterol [Breo 1 inhalation PO TID PRN 03/28/19 10/26/21 History Ellipta 100-25 Mcg Inhaler] Cholecalciferol [Vitamin D3 (25 50 mcg PO DAILY 10/26/21 10/26/21 History Mcg = 1000 Iu)] Docusate [Colace] 100 mg PO BID #60 capsule 10/28/21 Rx Doxycycline Hyclate 100 mg PO BID #10 tab 10/28/21 Rx HYDROcodone/APAP 10-325MG [[place] 1 tab PO Q4HR PRN #42 tab 10/29/21 Rx 10-325] Allergies Allergy/AdvReac Type Severity Reaction Status Date / Time ibuprofen AdvReac Anaphylaxis Verified 10/26/21 13:14 naproxen [From Naprosyn] AdvReac Anaphylaxis Verified 10/26/21 13:14 Physical Exam Vitals: Vital Signs Temp Pulse Resp BP BP Pulse Ox 10/28/21 13:15 97.5 F L 79 16 130/78 95 10/28/21 12:30 63 16 135/71 96 10/28/21 12:00 60 16 135/77 95 10/28/21 11:45 60 16 144/77 95 10/28/21 11:31 68 16 137/68 96 10/28/21 11:15 68 16 143/68 93 L 10/28/21 11:00 73 16 149/71 93 L 10/28/21 10:45 64 16 151/71 99 10/28/21 10:30 73 16 150/70 98 10/28/21 10:15 74 16 146/65 98 10/28/21 10:06 96.8 F L 76 16 166/76 97 10/28/21 07:00 69 16 136/65 96 10/28/21 06:25 97.9 F 81 16 124/66 97 Intake and Output 10/28/21 10/28/21 10/28/21 06:59 14:59 22:59 Intake Total 100 601 Output Total 250 Balance 100 351 Intake: IV 100 601 Output: Estimated Blood Loss 250 Other: Weight 133.4 kg 133.4 kg PHYSICAL EXAMINATION: Patient is lying in the bed comfortably, no acute distress, awake alert and oriented.morbidly obese.. HEENT: Normocephalic. Neck is supple. Pupils reactive. Nostrils clear. Oral cavity is moist. Neck reveals no JVD, carotid bruits, or thyromegaly. CHEST EXAMINATION: Trachea is central. Symmetrical expansion. Lung schwab clear to auscultation and percussion. CARDIAC: Normal S1, S2 with no gallops. No murmurs ABDOMEN: Soft. Bowel sounds normal. No organomegaly. No abdominal bruits. Extremities: reveal no edema. No clubbing or cyanosis Neurologically awake, alert, oriented x3 with well-coordinated movements. No focal deficits noted Skin: No rash or skin lesions. Psychiatric: Coperative. Nonsuicidal Musculoskeletal: No joint swelling or deformity. left shoulder surgical site intact. Sling in place. Results CBC & Chem 7: 10/29/21 04:30 10/29/21 04:30 Assessment and Plan Assessment: Status post left shoulder arthroplasty postoperative day 0 Hypertension blood pressure is controlled. Patient is on metoprolol, hydrochlorothiazide/lisinopril at home. Asthma not in exacerbation Hyperlipidemia Osteoarthritis History of cardiac ablation 2016 Morbid obesity BMI 46.1 DVT prophylaxis Plan: Patient will be continued on current pain management, bowel regimen and incentive spirometry. Albuterol inhaler as needed and continue with the Breo Ellipta 1 puff daily. Continue with metoprolol and will hold hydrochlorothiazide/lisinopril at this time. Encourage ambulation and further recommendations based on the clinical course. Thank you for your consult.
[2021-10-28] MEDS ORDERED: MONTELUKAST 10 MG TAB PO SCH (21:00)
[2021-10-28] MEDS: METOPROLOL TARTRATE 12.5 MG TAB PO SCH (21:37)
[2021-10-29] MEDS: LACTATED RINGERS 1,000 ML IV SCH (03:07)
[2021-10-29] MEDS: HYDROcodone/APAP 10-325MG 1 EACH TAB PO PRN ×2 (05:49→11:04)
[2021-10-29] MEDS: METOPROLOL TARTRATE 12.5 MG TAB PO SCH (07:37)
[2021-10-29 07:41] VITALS: BP 134/83; PULSE 76; RESP 18; TEMP 98.4
[2021-10-29] MEDS ORDERED: ASPIRIN 81 MG PO SCH (09:00)
[2021-10-29 09:08] LABS: HCT 32.7 % (37.2-46.3); HGB 10.4 g/dL (12.0-15.0); MCHC 31.8 g/dL (32.0-37.0); MCV 91.1 fL (80.0-97.0); Mean Platelet Volume 9.9 fL (9.5-12.2); NRBC Per 100 WBC 0 /100 WBCS (0.0-0.0); Platelet Count 353 X 10*3/uL (140-440); RBC 3.59 X 10*6/uL (4.10-5.20); WBC 16.16 X 10*3/uL (4.50-10.00)
[2021-10-29 09:15] LABS: African American GFR (CKD) 78.9 (60.0-200.0); Anion Gap 9.7 mmol/L (10.00-18.00); BUN/Creat Ratio 18.89 Ratio (12.00-20.00); Calcium 8.7 mg/dL (8.7-10.3); Carbon Dioxide 27.3 mmol/L (20.0-27.5); Potassium 3.9 mmol/L (3.5-5.5)
--- NOTE | 2021-10-29 09:38 | P.DS ---
Providers Expected date of discharge: 10/29/21 Attending physician: Kevin Vaca Consults: 10/28/21 10:13 Consult Physician Routine Consulting Provider: Gordy Ford Consult Reason/Comments: post op medical management Do you want consulting provider notified?: Yes Primary care physician: Hoa Perez - Discharge Diagnosis(es) (1) Status post total shoulder arthroplasty Patient was admitted to the OR on 10/28/21 to undergo a left total shoulder arthroplasty. She had failed conservative measures as an outpatient and desired to proceed with elective surgery after given informed consent. She underwent the above procedure which she tolerated well without complication. Postoperative hospital course has remained without complication. On day of discharge she is afebrile, vital signs stable, labs within acceptable ranges, tolerating by mouth meds and diet, voiding without difficulty, positive flatus, denies abdominal pain or calf pain, pain is controlled on oral pain medication and has no new complaints. Wound is benign, neurovascular status is intact, calves are soft and nontender, abdomen soft and nontender. Review of systems is negative for numbness, tingling, fever, chills, chest pain, shortness of breath, nausea, vomiting, dizziness, headaches, slurred speech or other. Current Visit: Yes Status: Acute Priority: Medium Procedures: Left TSA Patient Condition at Discharge: Good Plan - Discharge Summary Discharge Rx Participant: Yes New Discharge Prescriptions: New Doxycycline Hyclate 100 mg PO BID #10 tab HYDROcodone/APAP 10-325MG [[place] 10-325] 1 tab PO Q4HR PRN #42 tab PRN Reason: Pain Docusate [Colace] 100 mg PO BID #60 capsule No Action Metoprolol Tartrate [Lopressor] 12.5 mg PO BID Aspirin 81 mg PO QAM Albuterol Inhaler (Mhu) [Ventolin Hfa Inhaler (Mhu)] 1 - 2 puff INHALATION Q2-3H PRN PRN Reason: Shortness Of Breath Or Wheezing Montelukast [Singulair] 10 mg PO HS Lisinopril-Hctz 10-12.5 mg [Zestoretic 10-12.5] 10 mg PO QAM Ascorbic Acid [Vitamin C] 500 mg PO QAM Celecoxib [CeleBREX] 200 mg PO BID Fluticasone/Vilanterol [Breo Ellipta 100-25 Mcg Inhaler] 1 inhalation PO TID PRN PRN Reason: ALLERGIES /SHORTNESS OF BREATH Cholecalciferol [Vitamin D3 (25 Mcg = 1000 Iu)] 50 mcg PO DAILY HYDROcodone/APAP 7.5-325MG [[place] 7.5-325] 0.5 - 1 tab PO Q6HR PRN PRN Reason: FOR SEVERE PAIN Discharge Medication List Albuterol Inhaler (Mhu) [Ventolin Hfa Inhaler (Mhu)] 1 - 2 puff INHALATION Q2-3H PRN 07/23/14 [History] Aspirin 81 mg PO QAM 07/23/14 [History] Lisinopril-Hctz 10-12.5 mg [Zestoretic 10-12.5] 10 mg PO QAM 07/23/14 [History] Metoprolol Tartrate [Lopressor] 12.5 mg PO BID 07/23/14 [History] Montelukast [Singulair] 10 mg PO HS 07/23/14 [History] Ascorbic Acid [Vitamin C] 500 mg PO QAM 09/11/18 [History] Celecoxib [CeleBREX] 200 mg PO BID 09/11/18 [History] Fluticasone/Vilanterol [Breo Ellipta 100-25 Mcg Inhaler] 1 inhalation PO TID PRN 03/28/19 [History] Cholecalciferol [Vitamin D3 (25 Mcg = 1000 Iu)] 50 mcg PO DAILY 10/26/21 [History] HYDROcodone/APAP 7.5-325MG [[place] 7.5-325] 0.5 - 1 tab PO Q6HR PRN 10/26/21 [History] Docusate [Colace] 100 mg PO BID #60 capsule 10/28/21 [Rx] Doxycycline Hyclate 100 mg PO BID #10 tab 10/28/21 [Rx] HYDROcodone/APAP 10-325MG [[place] 10-325] 1 tab PO Q4HR PRN #42 tab 10/29/21 [Rx] Follow up Appointment(s)/Referral(s): Kevin Vaca MD [STAFF PHYSICIAN] - 10 Days Activity/Diet/Wound Care/Special Instructions: Non Weight Bearing Maintain sling May shower after 3 days if no bleeding Keep wound clean and dry Take meds as directed F/U with Dr. Vaca in office Discharge Disposition: HOME SELF-CARE
--- NOTE | 2021-10-29 11:01 | P.PN ---
Subjective Progress Note Date: 10/29/21 patient is a 61-year-old female with a known history of asthma, hypertension, hyperlipidemia, osteoarthritis, history ofcardiac ablation in 2016 was admitted to the hospital for elective left shoulder arthroplasty.patient tolerated the procedure very well. Currently patient is on left shoulder sling. Denies any complaints of chest pain or shortness of breath. No nausea vomiting abdominal pain or diarrhea. Denies any dysuria or hematuria. No leg swelling. Blood pressure is controlled. 10/29/2021 Patient is currently resting in the bed. Awake alert and oriented 3. No complaints of chest pain or shortness of breath. Shoulder pain is improving. No fever no chills. No other acute overnight issues. Patient does have elevated WBC likely due to postsurgical inflammation. Denied any dysuria or hematuria. No cough or sputum production. Patient is being discharged home today. Current medications reviewed. Objective - Vital Signs Vital signs: Vital Signs Temp 98.4 F 10/29/21 07:41 Pulse 76 10/29/21 07:41 Resp 18 10/29/21 07:41 BP 134/83 10/29/21 07:41 Pulse Ox 97 10/29/21 07:41 FiO2 Intake & Output 10/28/21 10/29/21 10/29/21 18:59 06:59 18:59 Intake Total 781 Output Total 305 Balance 476 Weight 133.4 kg Intake: IV 601 Oral 180 Output: Drainage 55 Left Shoulder 55 Estimated Blood Loss 250 Other: Voiding Method Toilet Toilet # Voids 3 1 - Exam PHYSICAL EXAMINATION: Patient is lying in the bed comfortably, no acute distress, awake alert and oriented.morbidly obese.. HEENT: Normocephalic. Neck is supple. Pupils reactive. Nostrils clear. Oral cavity is moist. Neck reveals no JVD, carotid bruits, or thyromegaly. CHEST EXAMINATION: Trachea is central. Symmetrical expansion. Lung schwab clear to auscultation and percussion. CARDIAC: Normal S1, S2 with no gallops. No murmurs ABDOMEN: Soft. Bowel sounds normal. No organomegaly. No abdominal bruits. Extremities: reveal no edema. No clubbing or cyanosis Neurologically awake, alert, oriented x3 with well-coordinated movements. No focal deficits noted Skin: No rash or skin lesions. Psychiatric: Coperative. Nonsuicidal Musculoskeletal: No joint swelling or deformity. left shoulder surgical site intact. Sling in place. - Labs CBC & Chem 7: 10/29/21 04:30 10/29/21 04:30 Labs: Abnormal Lab Results - Last 24 Hours (Table) 10/29/21 10/29/21 Range/Units 04:30 04:30 WBC 16.16 H (4.50-10.00) X 10*3/uL RBC 3.59 L (4.10-5.20) X 10*6/uL Hgb 10.4 L (12.0-15.0) g/dL Hct 32.7 L (37.2-46.3) % MCHC 31.8 L (32.0-37.0) g/dL Anion Gap 9.70 L (10.00-18.00) mmol/L Glucose 120 H (70-110) mg/dL Assessment and Plan Assessment: Status post left shoulder arthroplasty postoperative day 1 Leukocytosis is likely due to postsurgical inflammation. No other signs of infection. Hypertension blood pressure is controlled. Patient is on metoprolol, hydroch lorothiazide/lisinopril at home. Asthma not in exacerbation Hyperlipidemia Osteoarthritis History of cardiac ablation 2016 Morbid obesity BMI 46.1 DVT prophylaxis Plan: Patient will be continued on current pain management, bowel regimen and incentive spirometry. Albuterol inhaler as needed and continue with the Breo Ellipta 1 puff daily. Continue with metoprolol and we will start back on hydrochl orothiazide/lisinopril at discharge. Follow with primary care physician in 3-4 days. Patient is being discharged home today. Time with Patient: Greater than 30
[2021-10-29 12:25] LABS: Basophils # (A) 0.04 X 10*3/uL (0.00-0.10); Basophils % (A) 0.2 %; Eosinophils # (A) 0.04 X 10*3/uL (0.04-0.35); Eosinophils % (A) 0.2 %; Immature Grans, Automated 0.5 %; Lymphocytes % (A) 14.9 %; Monocytes # (A) 1.79 X 10*3/uL (0.20-1.00); Monocytes % (A) 11.1 %; Neutrophils # (A) 11.81 X 10*3/uL (1.80-7.70); Neutrophils % (A) 73.1 %
[2021-10-29 12:26] LABS: RBC Morphology NORMAL
== END 2021-10-29 12:06 | disposition home or self-care (01) ==
LOC: OR 05:34 → 4SSUR 10:04 → OR 10-29 12:06
PROVIDERS: ATTEND Orthopaedic Surgery Sports Medicine
DX: M19.012 Primary osteoarthritis, left shoulder (principal); M19.042 Primary osteoarthritis, left hand; M19.041 Primary osteoarthritis, right hand; M17.0 Bilateral primary osteoarthritis of knee; I10 Essential (primary) hypertension; E78.5 Hyperlipidemia, unspecified; M19.90 Unspecified osteoarthritis, unspecified site; J45.909 Unspecified asthma, uncomplicated; Z88.6 Allergy status to analgesic agent; Z79.82 Long term (current) use of aspirin; Z79.51 Long term (current) use of inhaled steroids; Z79.899 Other long term (current) drug therapy; Z87.442 Personal history of urinary calculi; Z80.9 Family history of malignant neoplasm, unspecified; E66.01 Morbid (severe) obesity due to excess calories
CPT/HCPCS: 64415; 76942; 80048; 85025; 88300; 73020; 23472; C1776; C1713; J2250; J3370; J0330; J1100; J2710; J0690 ×2; J2405; J3010; J1170; J2795; J2704; J2001

== ENCOUNTER → 2022-03-18 | Outpatient (CLI) | payer BC ==
--- NOTE | 2022-03-21 11:06 | MM ---
Reason for Exam: Screening (asymptomatic). Last mammogram was performed 3 year(s) and 7 month(s) ago. Patient History: Menarche at age 11. Patient has no children. Postmenopausal. 1977, Benign Excisional Biopsy on the right side. 09/20/2018, Benign Core Biopsy on the left side. Maternal aunt had breast cancer. Maternal aunt had breast cancer, age 45. Risk Values: Lila 5 year model risk: 2.6%. NCI Lifetime model risk: 10.9%. Prior Study Comparison: 06/09/2016 Bilateral Screening Mammogram, [facility]. 07/17/2017 Bilateral Screening Mammogram, [facility]. 08/30/2018 Bilateral Screening Mammogram, [facility]. 09/05/2018 Left Diagnostic Mammogram, [facility]. 09/20/2018 Left Diagnostic Mammogram, [facility]. 03/25/2019 Left Diagnostic Mammogram, [facility]. Tissue Density: The breast tissue is heterogeneously dense. This may lower the sensitivity of mammography. Findings: Analyzed By CAD. There is no suspicious group of microcalcifications or new suspicious mass in either breast. Redemonstration of biopsy marker in the lower inner left breast. Benign-appearing round calcifications within both breasts. Stable chronic nodularity within the right breast. No significant change from prior exams. Overall Assessment: Benign, BI-RAD 2 Management: Screening Mammogram of both breasts in 1 year. A clinical breast exam by your physician is recommended on an annual basis and results should be correlated with mammographic findings. Electronically signed and approved by: Ronald Schuler D.O.
== END | disposition home or self-care (01) ==
LOC: RADMAMWWP 11:09
PROVIDERS: ATTEND Family Medicine
DX: Z12.31 Encounter for screening mammogram for malignant neoplasm of breast (principal); Z78.0 Asymptomatic menopausal state; Z80.3 Family history of malignant neoplasm of breast
CPT/HCPCS: 77063; 77067

== ENCOUNTER → 2023-03-03 | Outpatient (CLI) | payer BC ==
[2023-03-03 16:39] LABS: HCT 39.3 % (37.2-46.3); HGB 12.3 d/dL (12.0-15.0); MCH 28.7 pg (27.0-32.0); MCHC 31.3 d/dL (32.0-37.0); MCV 91.6 FL (80.0-97.0); Mean Platelet Volume 10.4 FL (9.5-12.2); NRBC Per 100 WBC 0 X 10*3/uL (0.00-0.01); Platelet Count 343 X 10*3/uL (140-440); RBC 4.29 X 10*6/uL (4.10-5.20); RDW 14.1 % (11.5-14.5)
[2023-03-03 16:42] LABS: Blood Urea Nitrogen 28.8 mg/dL (9.0-27.0); Carbon Dioxide 27.7 mmol/L (21.6-31.8); Chloride 103 mmol/L (96-109); Potassium 4.3 mmol/L (3.5-5.5); Sodium 143 mmol/L (135-145)
== END | disposition home or self-care (01) ==
LOC: LABPAT 09:46
PROVIDERS: ATTEND Internal Medicine Interventional Cardiology
DX: Z01.812 Encounter for preprocedural laboratory examination (principal); R07.9 Chest pain, unspecified; R06.02 Shortness of breath
CPT/HCPCS: 80051; 82565; 84520; 85027

== ENCOUNTER 2023-03-17 09:40 | Day surgery (SDC) | payer BC ==
[~2023-03-17 09:40] MED LIST changes: -ACETAMINOPHEN TAB 500 MG TAB PO PRN; +ALPRAZolam 0.25 MG TAB PO PRN; +ALPRAZolam 0.5 MG TAB PO PRN; +ASPIRIN 325 MG TAB PO STA; +ATORVASTATIN 80 MG TAB PO STA; -GABAPENTIN 300 MG CAP PO PRN; +HEPARIN SODIUM,PORCINE (1 ML) 2,500 UNIT in SODIUM CHLORIDE 0.9% 250 ML IRRIGATION PRN; +HEPARIN SODIUM,PORCINE 10,000 UNIT in SODIUM CHLORIDE 0.9% 1,000 ML IRRIGATION PRN; +NITROGLYCERIN SL TABS 0.4 MG TAB SUBLINGUAL PRN; -ONDANSETRON 4 MG/2 ML VIAL IVP PRN; +SODIUM CHLORIDE 0.9% 1,000 ML in EMPTY BAG 1 BAG IV SCH; -TRANEXAMIC ACID IN NACL,ISO-OS 1,000 MG in SALINE 1 100ML.BAG IVPB PRN; -ceFAZolin 3 GM in SODIUM CHLORIDE 0.9% 100 ML IVPB PRN
[2023-03-17] MEDS ORDERED: SODIUM CHLORIDE 0.9% 1,000 ML IV ONE (09:48)
[2023-03-17 10:40] VITALS: TEMP 98.5
[2023-03-17] MEDS ORDERED: VERAPAMIL 2.5 MG/ML 2 ML AMP ONE (11:59)
[2023-03-17] MEDS ORDERED: MIDAZOLAM 2 MG/2 ML VIAL IVP ONE (12:15)
[2023-03-17] MEDS ORDERED: LIDOCAINE 1% INJ 10MG/ML (5 ML VIAL-PF) SQ ONE (12:17)
[2023-03-17] MEDS ORDERED: VERAPAMIL SYRINGE (5 MG/10 ML) INTRAARTER ONE (12:21)
[2023-03-17] MEDS ORDERED: HEPARIN SODIUM 1,000 UN/ML (10ML VL) IV ONE (12:26)
[2023-03-17] MEDS ORDERED: IOPAMIDOL-370 100ML BTL INJ ONE (12:31)
[2023-03-17] MEDS ORDERED: RX INFO: IV CONTRAST WAS GIVEN 1 EACH MISC MISCELLANE PRN (12:42)
[2023-03-17] MEDS ORDERED: SODIUM CHLORIDE 0.9% 1,000 ML IV SCH (12:45)
--- NOTE | 2023-03-17 12:55 | P.PCN ---
Date of Procedure: 03/17/23 Operative Findings: CARDIAC CATHETERIZATION PERFORMING PHYSICIAN: Wilman Rowan MD, RPVI PROCEDURE PERFORMED: 1. Selective right and left coronary angiogram 2. Left heart catheterization 3. Ultrasound-guided access of the right radial artery INDICATION: Chest pain and abnormal myocardial perfusion imaging stress is 62-year-old female patient who has multiple risk factors for CAD COMPLICATION: None APPROACH: Right radial artery LEVEL OF SEDATION: Moderate with a sedation length of 15 minutes PROCEDURE DESCRIPTION: After obtaining an informed consent, the patient was brought to cardiac laborer [facility]bark. Local anesthesia was performed using lidocaine subcutaneously. The right radial artery was cannulated using Seldinger technique, the guidewire passed easily, following that we advanced a 5-Austrian sheath dilator assembly, the wire and dilator were removed and sheath was flushed. Following that, 2 mg of verapamil along with 5000 unit heparin were given. Selective right and left coronary angiogram using a 6-Austrian JR4 and JL 3.5 catheters. Following that we did left heart catheterization using 6-Austrian pigtail catheter. The procedure was completed there was no complication. SELECTIVE CORONARY ANGIOGRAM: The right coronary artery: Large-caliber vessel ansa dominant vessel. The RCA is tortuous but angiographically normal Left main: Is normal. Bifurcates into an LCx and LAD The left circumflex: Large-caliber vessel and nondominant vessel. The LCx is angiographically normal. It gives rises into an OM1 which works as a ramus intermedius and appears to be angiographically normal. The second obtuse marginal branch is a medium caliber vessel appears to be angiographically normal. The circumflex distally gives rises into the third OM branch which appears to be angiograph ically normal and the circumflex continue as a small-caliber vessel in the AV groove The left anterior descending artery: Large caliber vessel. The LAD is angiographically normal. Gives rises into medium-sized diagonal branch appeared to be angiographically normal HEMODYNAMICS: The LVEDP was 5 mmHg was no significant gradient across aortic valve CONCLUSION: 1. Normal coronary angiogram 2. Normal left-sided filling pressure POSTPROCEDURE MANAGEMENT: Medical treatment
[2023-03-17 17:44] VITALS: BP 143/67; PULSE 63; RESP 16
== END 2023-03-17 16:21 | disposition home or self-care (01) ==
LOC: CATHCVL 09:40
PROVIDERS: ATTEND Internal Medicine Interventional Cardiology
DX: I25.10 Atherosclerotic heart disease of native coronary artery without angina pectoris (principal); I10 Essential (primary) hypertension; I38 Endocarditis, valve unspecified; I65.23 Occlusion and stenosis of bilateral carotid arteries; E78.5 Hyperlipidemia, unspecified; Z82.49 Family history of ischemic heart disease and other diseases of the circulatory system; Z79.82 Long term (current) use of aspirin; Z79.899 Other long term (current) drug therapy
CPT/HCPCS: 93458; C1769 ×2; C1894; J2250; J2001; J1644; Q9967

== ENCOUNTER → 2023-04-04 | Outpatient (CLI) | payer BC ==
--- NOTE | 2023-04-04 12:50 | MM ---
Reason for Exam: Screening (asymptomatic). Last screening mammogram was performed 12 month(s) ago. Patient History: Menarche at age 11. Patient has no children. Postmenopausal. 1977, Benign Excisional Biopsy on the right side. 09/20/2018, Benign Core Biopsy on the left side. Maternal aunt had breast cancer. Maternal aunt had breast cancer, age 45. Risk Values: Lila 5 year model risk: 2.7%. NCI Lifetime model risk: 10.6%. Prior Study Comparison: 09/20/2018 Left Diagnostic Mammogram, [facility]. 03/25/2019 Left Diagnostic Mammogram, [facility]. 03/18/2022 Bilateral MG 3D screening mammo w/cad, [facility]. Tissue Density: There are scattered fibroglandular densities. Findings: Analyzed By CAD. Left breast biopsy clip. There is no suspicious group of microcalcifications or new suspicious mass. Benign-appearing calcifications bilaterally. Overall Assessment: Benign, BI-RAD 2 Management: Screening Mammogram of both breasts in [address] [facility] will attempt to contact patient to return for supplemental views and ultrasound if indicated. Patient should continue monthly self-breast exams. A clinical breast exam by your physician is recommended on an annual basis. This exam should not preclude additional follow-up of suspicious palpable abnormalities. Note on Lila scores and lifetime risk: 1. A Lila score greater than 3% is considered moderate risk. If this is the case, consider specialist referral to assess eligibility for a risk reducing agent. 2. If overall lifetime risk for the development of breast cancer is 20% or higher, the patient may qualify for future screening with alternating mammogram and breast MRI. Electronically signed and approved by: Jatin Brian DO
== END | disposition home or self-care (01) ==
LOC: RADMAMWWP 08:03
PROVIDERS: ATTEND Family Medicine
DX: Z12.31 Encounter for screening mammogram for malignant neoplasm of breast (principal); Z78.0 Asymptomatic menopausal state; Z80.3 Family history of malignant neoplasm of breast
CPT/HCPCS: 77063; 77067

== ENCOUNTER → 2023-06-12 | Outpatient (CLI) | payer BC ==
--- NOTE | 2023-06-12 09:54 | US ---
EXAMINATION TYPE: US arterial LE single level DATE OF EXAM: 06/12/2023 9:24 AM CLINICAL INDICATION: Female, 62 years old with history of M79.661 PAIN IN RIGHT LOWER LEG; pain in bi lat legs below knees, heaviness in legs, large habitus History of: Smoker: N Hypertension: Y Diabetic: N Hyperlipidemia: Y TIA/CVA: N Previous Vascular Surgery: N CAD: N NH: N Vascular Ulcers: N Claudication: N Gangrene: N Doppler Waveforms: Right: Multiphasic Left: Multiphasic Right Brachial Pressure: 231 Left Brachial Pressure: 226 Ankle-Brachial Indices: Right: 0.8 Left: 0.8 IMPRESSION: Abnormal brachial indices bilaterally of 0.8 suggestive of mild peripheral vascular parvez rial disease. Multiphasic waveforms bilaterally which is within normal limits. Findings may be relate d to hypertension. Consider treatment for hypertension and reassessment.
== END | disposition home or self-care (01) ==
LOC: RADUSWWP 09:00
PROVIDERS: ATTEND Family Medicine
DX: R93.89 Abnormal findings on diagnostic imaging of other specified body structures (principal); M79.661 Pain in right lower leg; M79.662 Pain in left lower leg
CPT/HCPCS: 93922

== ENCOUNTER 2023-10-28 19:04 | Emergency (ER) | payer MEDICARE, BC ==
--- NOTE | 2023-10-28 19:44 | XR ---
EXAMINATION TYPE: XR knee complete LT DATE OF EXAM: 10/28/2023 7:39 PM CLINICAL INDICATION:Female, 63 years old with history of Injury; [facility] COMPARISON: None. TECHNIQUE: XR knee complete LT; examined in Frontal, lateral and oblique projections. FINDINGS: No evidence of any acute osseous pathology, soft tissue swelling, or joint effusion is no apryl. Tricompartmental osteophyte formation involving the femoral condyles, tibial plateau and patella . Mild joint space narrowing. IMPRESSION: 1. No acute osseous pathology. 2. Moderate tricompartmental osteoarthritic changes.
--- NOTE | 2023-10-28 22:01 | ED ---
General Adult HPI - General Chief complaint: Extremity Injury, Lower Stated complaint: Fall L Knee Injury Time Seen by Provider: 10/28/23 20:54 Source: patient, RN notes reviewed Mode of arrival: wheelchair Limitations: no limitations - History of Present Illness Initial comments: 63-year-old female presents to the emergency department for evaluation of left knee injury. Patient states that she was walking down the stairs of her camper when she tripped causing her to fall. She states that she twisted her left knee. She states that she has not been able to bear weight on it since then due to pain. She denies any other injury. Denies head injury, blood thinners. - Related Data Home Medications Medication Instructions Recorded Confirmed Albuterol Inhaler [Ventolin Hfa 1 - 2 puff INHALATION Q2-3H PRN 07/23/14 03/15/23 Inhaler] Aspirin 81 mg PO QAM 07/23/14 03/17/23 Lisinopril-Hctz 10-12.5 mg 10 mg PO QAM 07/23/14 03/15/23 [Zestoretic 10-12.5] Metoprolol Tartrate [Lopressor] 12.5 mg PO BID 07/23/14 03/15/23 Montelukast [Singulair] 10 mg PO HS 07/23/14 03/17/23 Celecoxib [CeleBREX] 200 mg PO DAILY 09/11/18 03/15/23 Fluticasone/Vilanterol [Breo 1 inhalation PO TID PRN 03/28/19 03/17/23 Ellipta 100-25 Mcg Inhaler] Cholecalciferol [Vitamin D3 (25 50 mcg PO DAILY 10/26/21 03/17/23 Mcg = 1000 Iu)] Atorvastatin(Unk) 40 mg PO DAILY 03/15/23 03/15/23 Previous Rx's Medication Instructions Recorded HYDROcodone/APAP 5-325MG [[place] 5] 1 each PO Q6HR PRN #12 tab 10/28/23 Allergies Allergy/AdvReac Type Severity Reaction Status Date / Time ibuprofen AdvReac Anaphylaxis Verified 10/28/23 19:17 naproxen [From Naprosyn] AdvReac Anaphylaxis Verified 10/28/23 19:17 Review of Systems ROS Statement: Those systems with pertinent positive or pertinent negative responses have been documented in the HPI. ROS Other: All systems not noted in ROS Statement are negative. Past Medical History Past Medical History: Asthma, Coronary Artery Disease (CAD), Hypertension, Osteoarthritis (OA) Additional Past Medical History / Comment(s): osteoarthritis bilateral knees and hands. History of Any Multi-Drug Resistant Organisms: None Reported Past Surgical History: Orthopedic Surgery, Uterine Ablation Additional Past Surgical History / Comment(s): Right breast cysts/tumors removed at age 17, Multiple D&C's, cardiac ablation [place] [address] Rowan, Right knee arthroscopy/meniscus repair (Dr. Kevin Vaca) Past Anesthesia/Blood Transfusion Reactions: No Reported Reaction Additional Past Anesthesia/Blood Transfusion Reaction / Comment(s): Patient states her father had difficulty coming out of anesthesia when he was in his age 60-70 but she has never had any issues personally Past Psychological History: No Psychological Hx Reported Smoking Status: Never smoker Past Alcohol Use History: Rare Past Drug Use History: None Reported - Past Family History Mother Family Medical History: Cancer Additional Family Medical History / Comment(s): Patient states that 2 of her mother's sisters had double mastectomies, the 3rd aunt had a unilateral mastectomy General Exam Limitations: no limitations General appearance: alert, in no apparent distress Head exam: Present: atraumatic, normocephalic, normal inspection Eye exam: Present: normal appearance, PERRL, EOMI. Absent: scleral icterus, conjunctival injection, periorbital swelling Neck exam: Present: normal inspection. Absent: tenderness, meningismus, lymphadenopathy Respiratory exam: Present: normal lung sounds bilaterally. Absent: respiratory distress, wheezes, rales, rhonchi, stridor Cardiovascular Exam: Present: regular rate, normal rhythm, normal heart sounds. Absent: systolic murmur, diastolic murmur, rubs, gallop, clicks Extremities exam: Present: tenderness (Medial aspect of the left knee), normal capillary refill, other (DP and PT pulses 2+). Absent: full ROM (Decreased range of motion due to pain), pedal edema, joint swelling, calf tenderness Neurological exam: Present: alert, oriented X3 Psychiatric exam: Present: normal affect, normal mood Skin exam: Present: warm, dry, intact, normal color. Absent: rash Course Vital Signs 10/28/23 10/28/23 19:15 22:50 Temperature 98.1 F 97.8 F Pulse Rate 71 69 Respiratory 20 16 Rate Blood Pressure 147/81 140/83 O2 Sat by Pulse 99 100 Oximetry Medical Decision Making - Medical Decision Making Was pt. sent in by a medical professional or institution ([facility], [facility]LE REPAIRMAN, urgent care, hospital, or fpc...) When possible be specific @ -No Did you speak to anyone other than the patient for history (EMS, parent, family, police, friend...)? What history was obtained from this source @ -No Did you review nursing and triage notes (agree or disagree)? Why? @ -I reviewed and agree with nursing and triage notes Were old charts reviewed (outside hosp., previous admission, EMS record, old EKG, old radiological studies, urgent care reports/EKG's, fpc records)? Report findings @ -No old charts were reviewed Differential Diagnosis (chest pain, altered mental status, abdominal pain women, abdominal pain men, vaginal bleeding, weakness, fever, dyspnea, syncope, headache, dizziness, GI bleed, back pain, seizure, CVA, palpatations, mental health, musculoskeletal)? @ -Differential Musculoskeletal Muscular strain, contusion, ligament sprain, fracture, arthritis, septic arthritis, bursitis, cellulitis, muscle spasm, nerve compression, DVT, arterial occlusion, herpes zoster, electrolyte abnormality, tumor.... This is not meant to be in all inclusive list EKG interpreted by me (3pts min.). @ -None X-rays interpreted by me (1pt min.). @ -X-ray of the left knee shows no evidence of acute fracture or dislocation, osteoarthritic changes present CT interpreted by me (1pt min.). @ -None done U/S interpreted by me (1pt. min.). @ -None done What testing was considered but not performed or refused? (CT, X-rays, U/S, labs)? Why? @ -None What meds were considered but not given or refused? Why? @ -None Did you discuss the management of the patient with other professionals (professionals i.e. [facility], LADLE REPAIRMAN, lab, RT, psych nurse, social worker aide, deckhand fishing vessel, teacher, stream control officer, hospice case manager)? Give summary @ -No Was smoking cessation discussed for >3mins.? @ -No Was critical care preformed (if so, how long)? @ -No Were there social determinants of health that impacted care today? How? (Homelessness, low income, unemployed, alcoholism, drug addiction, transportation, low edu. Level, literacy, decrease access to med. care, retirement, rehab)? @ -No Was there de-escalation of care discussed even if they declined (Discuss DNR or withdrawal of care, Hospice)? DNR status @ -No What co-morbidities impacted this encounter? (DM, HTN, Smoking, COPD, CAD, Cancer, CVA, ARF, Chemo, Hep., AIDS, mental health diagnosis, sleep apnea, morbid obesity)? @ -None Was patient admitted / discharged? Hospital course, mention meds given and route, prescriptions, significant lab abnormalities, going to OR and other pertinent info. @ -Discharged. Patient presented to the emergency department for evaluation of left knee injury following a fall. X-rays were obtained which showed no evidence of acute fracture or dislocation. Distally neurovascularly intact. Patient placed in knee immobilizer and provided crutches. Advised orthopedics follow up. She is understanding and agreeable with plan. Patient stable time of discharge. Case discussed with Dr. Sullivan Undiagnosed new problem with uncertain prognosis? @ -No Drug Therapy requiring intensive monitoring for toxicity (Heparin, Nitro, Insulin, Cardizem)? @ -No Were any procedures done? @ -No Diagnosis/symptom? @ -Left knee sprain Acute, or Chronic, or Acute on Chronic? @ -acute Uncomplicated (without systemic symptoms) or Complicated (systemic symptoms)? @ -uncomplicated Side effects of treatment? @ -No Exacerbation, Progression, or Severe Exacerbation? @ -No Poses a threat to life or bodily function? How? (Chest pain, [place], [place], pneumonia, PE, COPD, DKA, ARF, appy, cholecystitis, CVA, Diverticulitis, Homicidal, Suicidal, threat to staff... and all critical care pts) @ -No Disposition Clinical Impression: Left knee sprain Disposition: HOME SELF-CARE Condition: Stable Instructions (If sedation given, give patient instructions): Knee Sprain (ED) Additional Instructions: Please follow up with orthopedics. Return to the emergency department for new or worsening symptoms. Prescriptions: HYDROcodone/APAP 5-325MG [[place] 5] 1 each PO Q6HR PRN #12 tab PRN Reason: Pain Is patient prescribed a controlled substance at d/c from ED?: Yes When asked, does pt state using other controlled substances?: No If prescribed controlled substance>3 days was MAPS reviewed?: Prescribed <3 Days Referrals: Ector Goldberg MD [Primary Care Provider] - 1-2 days Kevin Vaca MD [STAFF PHYSICIAN] - 1-2 days
[2023-10-28 22:51] VITALS: BP 140/83; PULSE 69; RESP 16; TEMP 97.8
== END 2023-10-28 22:51 | disposition home or self-care (01) ==
LOC: EC 19:04
DX: S83.92XA Sprain of unspecified site of left knee, initial encounter (principal); Z88.6 Allergy status to analgesic agent; Z88.8 Allergy status to other drugs, medicaments and biological substances; W01.0XXA Fall on same level from slipping, tripping and stumbling without subsequent striking against object, initial encounter
CPT/HCPCS: 73562; 99283; L1830

== ENCOUNTER → 2024-05-30 | Outpatient (CLI) | payer MEDICARE, BC ==
--- NOTE | 2024-05-31 08:31 | MM ---
Reason for Exam: Screening (asymptomatic). Last mammogram was performed 1 year(s) and 2 month(s) ago. Patient History: Menarche at age 11. Patient has no children. Postmenopausal. 1977, Benign Excisional Biopsy on the right side. 09/20/2018, Benign Core Biopsy on the left side. Maternal aunt had breast cancer. Maternal aunt had breast cancer, age 45. Risk Values: Lila 5 year model risk: 2.8%. NCI Lifetime model risk: 10.3%. Prior Study Comparison: 03/25/2019 Left Diagnostic Mammogram, [facility]. 03/18/2022 Bilateral MG 3D screening mammo w/cad, [facility]. 04/04/2023 Bilateral MG 3D screening mammo w/cad, [facility]. Tissue Density: There are scattered areas of fibroglandular density. Findings: Analyzed By CAD. Mammotome biopsy clip in the left breast is redemonstrated. Tiny benign-appearing round calcifications bilaterally are again seen. There are a few sub-5 mm circumscribed masses in the right breast outer aspect redemonstrated and stable. Similar sub-5 mm circumscribed masses in the left breast are stable. Findings presumed fibrocystic changes. There is no suspicious group of microcalcifications or new or enlarging suspicious mass in either breast. Overall Assessment: Benign, BI-RAD 2 Management: Screening Mammogram of both breasts in 1 year. . Patient should continue monthly self-breast exams. A clinical breast exam by your physician is recommended on an annual basis. This exam should not preclude additional follow-up of suspicious palpable abnormalities. Note on Lila scores and lifetime risk: 1. A Lila score greater than 3% is considered moderate risk. If this is the case, consider specialist referral to assess eligibility for a risk reducing agent. 2. If overall lifetime risk for the development of breast cancer is 20% or higher, the patient may qualify for future screening with alternating mammogram and breast MRI. [facility], , 05/31/2024 7:53 AM. Electronically signed and approved by: Donnie Gonsalez M.D.
--- NOTE | 2024-06-01 19:26 | BD ---
EXAMINATION TYPE: Axial Bone Density DATE OF EXAM: 05/30/2024 CLINICAL HISTORY: 63 years old Female. ICD-10 CODE: M89.9 DISORDER OF BONE, UNSPECIFI , Additional H istory: Height: 65 Weight: 303 FRAX RISK QUESTIONS: Alcohol (3 or more units per day): no Family History (Parent hip fracture): no Glucocorticoids (More than 3mos): no (Ex: prednisone, prednisolone, methylprednisolone, dexamethasone, and hydrocortisone). History of Fracture in Adulthood: no Secondary Osteoporosis: 1. Type 1 Diabetes: no 2. Hyperthyroidism: no 3. Menopause before 45: yes 4. Malnutrition: no 5. Chronic liver disease: no Rheumatoid Arthritis: no Current Tobacco Use: no RISK FACTORS HISTORY OF: Surgery to Spine/Hip(right/left)/Wrist (right/left): no EXAM MEASUREMENTS: Bone mineral densitometry was performed using the [employer] System. Bone mineral density as measured about the Lumbar spine is: ----- L1-L4(G/cm2): 1.802 T Score Values are as follows: ----- L1: 7.3 ----- L2: 5.8 ----- L3: 4.4 ----- L4: 3.6 ----- L1-L4: 5.2 Z Score Values are as follows: ----- L1: 7.7 ----- L2: 6.2 ----- L3: 4.9 ----- L4: 4.0 ----- L1-L4: 5.6 Bone mineral density has: increased 11.0 % since study of: 09.05.2013 Bone mineral density about the R hip (g/cm2): 1.113 Bone mineral density about the L hip (g/cm2): 1.093 T Score values are as follows: -----R Neck: -1.4 -----L Neck: -1.2 -----R Total: 0.8 -----L Total: 0.7 Z Score values are as follows: -----R Neck: -0.7 -----L Neck: -0.5 -----R Total: 1.2 -----L Total: 1.1 Bone mineral density has: decreased -15.2 % since study of: 09.05.2013 FRAX%s: The graph provided illustrates a 7.1 % chance for a major osteoporotic fx and a 0.6% chance f or the hips probability for fx in 10 years time. IMPRESSION: Osteopenia (T Score between -2.5 and -1). There is slightly increased risk of fracture and the patient may be considered for treatment. Re-Screen 2-5 years. NOTE: T-SCORE=SD OF THE YOUNG ADULT MEAN. [facility], , 06/01/2024 7:24 PM
== END | disposition home or self-care (01) ==
LOC: RADMAMWWP 15:52
PROVIDERS: ATTEND Family Medicine
DX: Z12.31 Encounter for screening mammogram for malignant neoplasm of breast (principal); Z78.0 Asymptomatic menopausal state; Z80.3 Family history of malignant neoplasm of breast; R92.323 Mammographic fibroglandular density, bilateral breasts; Z98.82 Breast implant status; M85.89 Other specified disorders of bone density and structure, multiple sites
CPT/HCPCS: 77063; 77067; 77080